=== PATIENT | male | born 1955 | race Two or more races ===

== ENCOUNTER 2018-04-17 14:12 | Emergency (ER) | payer BC, MEDICAID ==
[~2018-04-17] VITALS: Ht 180.3 cm; Wt 145.1 kg
[2018-04-17 14:57] LABS: Basophils # (auto) 0.1 uL; Basophils % (auto) 0.8 % (0.0-2.0); Eosinophils # (auto) 0.2 uL; Eosinophils % (auto) 2.4 % (0.0-7.0); Hematocrit 44.7 % (41.0-53.0); Lymphocytes # (auto) 3.1 uL; Lymphocytes % (auto) 35.5 % (10.0-50.0); Mean Corpuscular Hemoglobin 29.3 pg (28.0-32.0); Mean Corpuscular Hgb Conc. 33.6 g/dL (32.0-36.0); Mean Corpuscular Volume 87.1 fL (80.0-100.0); Monocytes # (auto) 0.9 uL; Monocytes % (auto) 10.1 % (0.0-12.0); Neutrophils # (auto) 4.4 uL; Neutrophils % (auto) 51.2 % (37.0-80.0); Nucleated Red Blood Cells % 0.1 %; Platelet Count (auto) 300 10^3/uL (140-450); Red Blood Cells 5.13 10^6/uL (4.5-5.90); Red Cell Distribution Width 13.6 % (11.8-14.3); White Blood Cell 8.7 10^3/uL (4.4-10.8)
[2018-04-17 15:22] LABS: INR 0.89 (0.9-1.15); Partial Thromboplastin Time 23.7 sec (23.78-33.04); Prothrombin Time 9.6 sec (9.27-12.13)
[2018-04-17 15:43] LABS: Alanine Aminotransferase 24 U/L (16-61); Albumin 3.4 g/dL (3.4-5.0); Alkaline Phosphatase 100 U/L (45-117); Anion Gap 8 (5-15); Aspartate Aminotransferase 12 U/L (15-37); BUN/Creatinine Ratio 20.9; Bilirubin, Total 0.7 mg/dL (0.2-1.0); Blood Urea Nitrogen 18 mg/dL (7-18); Calcium 8.1 mg/dL (8.5-10.1); Carbon Dioxide 25 mmol/L (21-32); Chloride 107 mmol/L (98-107); GFR African American 116 mL/min; GFR Non-African American 95 mL/min; Glucose 147 mg/dL (74-106); Potassium 4.1 mmol/L (3.5-5.1); Sodium 140 mmol/L (136-145); Total Protein 7.4 g/dL (6.4-8.2)
[2018-04-17] MEDS ORDERED: IOHEXOL 350 MG/ML 100ML IJ ONE (16:15)
[2018-04-17 19:44] VITALS: BP 132/69
== END 2018-04-17 19:36 | disposition home or self-care (01) ==
LOC: ER 14:12
DX: R79.1 Abnormal coagulation profile (principal); E11.9 Type 2 diabetes mellitus without complications; E78.5 Hyperlipidemia, unspecified; R53.1 Weakness
CPT/HCPCS: 36415; 71046; 71275; 80053; 83880; 84484; 85025; 85379; 85610; 85730; 93005; 93970; 99285; Q9967

== ENCOUNTER 2019-04-21 14:46 | Inpatient (IN) | payer BC ==
[~2019-04-21] VITALS: Ht 180.3 cm; Wt 141.4 kg
[2019-04-21] MEDS ORDERED: SODIUM CHLORIDE 0.9% 2,000 ML IV ONE (16:00)
[2019-04-21] MEDS ORDERED: PIPERACILLIN-TAZOB 3.375GM 100 ML IV ONE (17:00)
[2019-04-21 17:32] LABS: Basophils # (auto) 0.2 uL; Basophils % (auto) 1.7 % (0.0-2.0); Eosinophils # (auto) 0.3 uL; Eosinophils % (auto) 3.2 % (0.0-7.0); Hemoglobin 13.9 g/dL (13.5-17.5); Lymphocytes # (auto) 3.1 uL; Lymphocytes % (auto) 34.1 % (10.0-50.0); Mean Corpuscular Hemoglobin 28.9 pg (28.0-32.0); Mean Corpuscular Volume 87.5 fL (80.0-100.0); Monocytes # (auto) 0.9 uL; Monocytes % (auto) 10.2 % (0.0-12.0); Neutrophils # (auto) 4.7 uL; Neutrophils % (auto) 50.8 % (37.0-80.0); Nucleated Red Blood Cells % 0.1 %; Platelet Count (auto) 304 10^3/uL (140-450); Red Cell Distribution Width 13.6 % (11.8-14.3); White Blood Cell 9.2 10^3/uL (4.4-10.8)
[2019-04-21 17:46] LABS: Alanine Aminotransferase 30 U/L (16-61); Albumin 3.2 g/dL (3.4-5.0); Anion Gap 7 (5-15); Aspartate Aminotransferase 19 U/L (15-37); Blood Urea Nitrogen 16 mg/dL (7-18); Calcium 8.3 mg/dL (8.5-10.1); Carbon Dioxide 27 mmol/L (21-32); Chloride 106 mmol/L (98-107); GFR African American 125 mL/min; GFR Non-African American 103 mL/min; Glucose 143 mg/dL (74-106); Potassium 4.1 mmol/L (3.5-5.1); Sodium 140 mmol/L (136-145)
[2019-04-21 17:51] LABS: Alkaline Phosphatase 97 U/L (45-117); Bilirubin, Total 0.3 mg/dL (0.2-1.0); INR < 0.93 (0.9-1.15); Partial Thromboplastin Time 22.9 sec (23.64-32.05); Total Protein 7.5 g/dL (6.4-8.2)
[2019-04-21] MEDS ORDERED: ONDANSETRON HCL 4 MG/2 ML VIAL IV PRN (20:15)
[2019-04-21] MEDS ORDERED: HYDROcodone-ACET 5/325MG TAB PO PRN (20:15)
[2019-04-21] MEDS ORDERED: TEMAZEPAM 15 MG CAP PO PRN (20:15)
[2019-04-21] MEDS ORDERED: DEXTROSE (50%) 50ML SYRG IV PRN (20:15)
[2019-04-21] MEDS ORDERED: ACETAMINOPHEN 325 MG TAB PO PRN (20:15)
[2019-04-21] MEDS ORDERED: LEVOFLOXACIN 500MG 100 ML IV ONE (20:15)
[2019-04-21 21:13] VITALS: BP 118/53
[2019-04-21] MEDS: FAMOTIDINE 20 MG TAB PO SCH (22:22)
[2019-04-21] MEDS: ATORVASTATIN 20 MG TAB PO SCH (22:23)
[2019-04-21 23:45] VITALS: BP 134/70
[2019-04-21 23:52] VITALS: BP 119/53
[2019-04-22] MEDS: ACCU-CHEK COMFORT CURVE STRIP VI SCH ×4 (00:13→17:21)
[2019-04-22] MEDS: InsuLIN REG 1unit/0.01ml Soln (100units/ml) SC SCH ×4 (00:15→17:20)
[2019-04-22 05:00] VITALS: BP 102/59
--- NOTE | 2019-04-22 06:50 | NUR ---
Respiratory note: PT WAS OFFF CPAP. NO RESPIRATORY DISTRESS NOTED. PT WAS SLEEPING COMFORTABLY. SPO2 96% ON 2L NC HR 62.
--- NOTE | 2019-04-22 07:20 | NUR ---
Opening Shift Note Assumed care of patient, awake and alert. No S/S of distress/SOB or ear pain. Instructed on POC-continue IV antibiotic, monitor drainage on ear. Patient informed to call for assist PRN, will continue to monitor for changes Q1hr and PRN.
[2019-04-22 08:10] LABS: Basophils # (auto) 0.1 uL; Basophils % (auto) 0.7 % (0.0-2.0); Eosinophils # (auto) 0.3 uL; Eosinophils % (auto) 3.8 % (0.0-7.0); Hematocrit 41.6 % (41.0-53.0); Hemoglobin 13.9 g/dL (13.5-17.5); Lymphocytes # (auto) 2.6 uL; Lymphocytes % (auto) 33.6 % (10.0-50.0); Mean Corpuscular Hemoglobin 29.1 pg (28.0-32.0); Mean Corpuscular Hgb Conc. 33.3 g/dL (32.0-36.0); Mean Corpuscular Volume 87.4 fL (80.0-100.0); Monocytes # (auto) 0.9 uL; Monocytes % (auto) 11.2 % (0.0-12.0); Neutrophils % (auto) 50.7 % (37.0-80.0); Nucleated Red Blood Cells % 0.1 %; Platelet Count (auto) 275 10^3/uL (140-450); Red Blood Cells 4.76 10^6/uL (4.5-5.90); Red Cell Distribution Width 13.9 % (11.8-14.3); White Blood Cell 7.8 10^3/uL (4.4-10.8)
[2019-04-22 09:00] VITALS: BP 140/77
[2019-04-22] MEDS: LEVOFLOXACIN 500MG 100 ML IV SCH (10:10)
[2019-04-22] MEDS: HCTZ 25 MG TAB PO SCH (10:11)
[2019-04-22] MEDS: FAMOTIDINE 20 MG TAB PO SCH ×2 (10:12→22:34)
[2019-04-22 13:00] VITALS: BP 131/82
[2019-04-22] MEDS ORDERED: VANCOMYCIN PER PHARMACY 0 MG IV SCH (16:15)
[2019-04-22] MEDS: VANCOMYCIN 1,500 MG in D5W 5% 250 ML IV SCH (16:36)
[2019-04-22 17:00] VITALS: BP 125/72
--- NOTE | 2019-04-22 19:30 | NUR ---
Opening Shift Note Assumed care of patient, awake and alert x4. Patient denies pain at this time. No S/S of distress/SOB noted. Instructed on plan of care and to call for assistance as needed. Bed is locked in lowest position, side rails x 2 are up, and call light is within reach.
--- NOTE | 2019-04-22 19:58 | NUR ---
RECEIVED CALL FROM LAB RE: BLOOD CULTURE Received call from Ole ozuna, and this RN was notified that patients blood cultures from -- have resulted and are positive for gram positive cocci in clusters. Will notify
--- NOTE | 2019-04-22 20:00 | NUR ---
SPOKE WITH DR. KENNY RE: BOOD CULTURES Notified Dr. Kenny that patients blood cultures from 04-21-19 resulted and came back positive for gram positive cocci in clusters. Patient is currently on scheduled Vancomycin and Levaquin antibiotics. No new orders received at this time.
[2019-04-22 22:00] VITALS: BP 108/68
[2019-04-22] MEDS: ATORVASTATIN 20 MG TAB PO SCH (22:34)
[2019-04-23] MEDS: ACCU-CHEK COMFORT CURVE STRIP VI SCH ×3 (00:29→12:00)
[2019-04-23] MEDS: VANCOMYCIN 1,500 MG in D5W 5% 250 ML IV SCH (04:33)
--- NOTE | 2019-04-23 04:35 | NUR ---
IV INSERTION/REMOVAL IV to left AC DC'd with clean sterile technique, catheter fully intact. Pressure dressing applied to site. Patient tolerated well. IV access obtained, via clean sterile technique by inserting 22 gauge catheter at right hand after 1 attempt. IV secured properly. IV flushing well with no resistance, educated patient to notify this RN if IV site begins to burn or feel painful, patient verbalized understanding.
[2019-04-23 05:00] VITALS: BP 117/71
[2019-04-23] MEDS: InsuLIN REG 1unit/0.01ml Soln (100units/ml) SC SCH ×3 (07:59→12:00)
[2019-04-23 08:00] VITALS: BP 121/73
--- NOTE | 2019-04-23 08:00 | NUR ---
RECEIVED PATIENT ALERT AND ORIENTED X4, NOT IN DISTRESS, NO EDEMA OR DRAINAGE FROM LT EAR NOTED, NO HEARING DEFICIENCY NOTED, EXPIRATORY WHEEZING SOUNDS IN BILATERAL LUNG LOBES RR= 18 SAT=95%, HEART R=88, DENIED SOB OR CHEST PAIN, ABDOMEN ROUND AND SOFT WITH ACTIVE BS, LAST BM=04/22/19 REPORTED, TOLERATED 100% OF PROVIDED BREAK FAST TRAY, SKIN INTACT WARM TO TOUCH, RADIAL AND PEDAL PULSES PALPABLE, CAP REFILL<3 SECONDS, HEAD OF BED ELEVATED, BED ON LOW POSITION, RAILS UP X2, CALL LIGHT ON REACH, WILL CONTINUE MONITORING.
--- NOTE | 2019-04-23 08:35 | NUR ---
PT. ASSESSED , NO RESP. DISTRESS NOTED. PT. IS AWAKE,ALERT, AND ABLE TO FOLLOW COMMANDS. BS. ARE CLEAR AND DIMINISHED. PT. STATES HE WORE HIS CPAP LAST NIGHT, HE IS HOPING TO GO HOME TODAY. RA SPO2 96%,HR=72,RR=18. PT. STATES IF HE HAS TO STAY ANOTHER NIGHT HE WILL BE WEARING THE CPAP.
[2019-04-23] MEDS ORDERED: METF-370 PO (09:13)
[2019-04-23] MEDS ORDERED: HYDR12.56 PO (09:13)
[2019-04-23] MEDS ORDERED: TAMS0.4C36 PO (09:13)
[2019-04-23] MEDS ORDERED: LOVA20TA4 PO (09:13)
[2019-04-23] MEDS ORDERED: LEVO-28 PO (09:13)
[2019-04-23] MEDS: LEVOFLOXACIN 500MG 100 ML IV SCH (10:00)
[2019-04-23] MEDS: HCTZ 25 MG TAB PO SCH (10:01)
[2019-04-23] MEDS: FAMOTIDINE 20 MG TAB PO SCH (10:01)
[2019-04-23 14:00] VITALS: BP 129/78
--- NOTE | 2019-04-23 14:47 | NUR ---
D/C INSTRUCTIONS AND EDUCATION WAS PROVIDED, FOLLOW UP APPOINTMENT WILL BE DONE BY CALLING FROM HOME, VERBALIZED UNDERSTANDING, PRESCRIPTIONS AND MEDICATION INFORMATION PROVIDED, LT. EAR DRY AND INTACT, DENIED PAIN OR DISCOMFORT ON THE SITE, D/C IV SITE FROM RT. HAND, TOLERATED WELL, VS T=98.5 RR=18 SAT=96% P=68 ZH=038/73, NOT IN DISTRESS, DENIED PAIN, WC WAS PROVIDED, D.C HOME WALKING, TOOK ALL BELONGINGS AND LEFT NOTHING BEHIND.
== END 2019-04-23 13:40 | disposition home or self-care (01) | DRG 153 ==
LOC: ER 14:49 → OVERFLOW 14:50 → EAST 21:14
PROVIDERS: ADMIT Nurse Practitioner; ATTEND Internal Medicine
DX: H66.92 Otitis media, unspecified, left ear (principal); Z68.41 Body mass index [BMI] 40.0-44.9, adult; D32.9 Benign neoplasm of meninges, unspecified; I10 Essential (primary) hypertension; E66.01 Morbid (severe) obesity due to excess calories; G47.33 Obstructive sleep apnea (adult) (pediatric); E11.9 Type 2 diabetes mellitus without complications; E78.5 Hyperlipidemia, unspecified; E78.00 Pure hypercholesterolemia, unspecified; Z71.3 Dietary counseling and surveillance
CPT/HCPCS: 36415; 70488; 71046; 80053; 80202; 82962; 83036; 84484; 85025; 85610; 85730; 87040; 87077; 87186; 87205; 94660; 96365; 96366; 96367; G0378; J1815; J1956; J2543; J7060

== ENCOUNTER 2024-10-28 15:38 | Inpatient (IN) | payer BC, OTHER ==
[~2024-10-28] VITALS: Ht 180.3 cm; Wt 133.7 kg
[~2024-10-28 15:38] MED LIST: HYDR12.59 PO; LEVO500T91 PO; LOVA20TA4 PO; METF-370 PO; TAMS0.4C39 PO
--- NOTE | 2024-10-28 16:01 | ED.PDOC ---
HPI Comments 69 year old male presents to the ED with chief complaint of chest pain and SOB. Patient reports that he was diagnosed with A-Fib a month ago and had been prescribed Eliquis by his curtain stitcher. Patient relays that he started to experience SOB with associated substernal chest pressure today. Patient states he drank half a cup of coffee prior to symptom onset. EMS notes patient had went to his PCP and once an EKG was performed, 911 was called due to a reading of A- Fib w/ RVR. EMS reports patient's heart rate ranged from the 130s to the 180s. Patient denies any dizziness, headache, N/V, fever, chills, cough, or weakness. Time Seen by MD: 15:54 Primary Care Provider: New PCP Reviewed Notes: Nurses Notes, Rag Inspector Notes, Medications, Allergies Allergies: Coded Allergies: NO KNOWN ALLERGIES (Unverified , 04/17/18) Home Meds Reported Medications Lovastatin (Lovastatin) 20 Mg Tab, 1 TAB PO DAILY, #30 TAB 5 Refills 04/23/19 Levofloxacin Hemihydrate (LEVOFLOXACIN) 500 Mg Tab, 500 MG PO DAILY, MG 04/23/19 Hydrochlorothiazide (Hydrochlorothiazide) 12.5 Mg Cap, 12.5 MG PO DAILY for 30 Days, MG 04/23/19 Tamsulosin Hcl (Tamsulosin Hcl) 0.4 Mg Cap, 0.4 MG PO QPM for 30 Days, MG 04/23/19 Metformin Hydrochloride (Metformin Hcl) 500 Mg Tab, 500 MG PO DAILY for 30 Days, MG 04/23/19 Information Source: Patient, Emergency Med Personnel Mode of Arrival: EMS Severity: Moderate Timing: Hours Duration: Since onset Prehospital treatment: 12 Lead EKG Location: Substernal Radiation: No Radiation Quality: Pressure Onset: At Rest Cardiac Risk Factors: Hyperlipidemia, Diabetes PE Risk Factors: None History of: Similar pain in past Modifying Factors: Nothing Past Medical History PAST MEDICAL HISTORY: AFIB, DM, High Lipids Surgical History: Hernia Repair Family History Family History: Unobtainable Social History Smoker: Non-Smoker Alcohol: Occasionally Drugs: Denies Drug Use Lives In: Home Constitutional: denies: chills, diaphoresis, fatigue, fever, malaise, sweats, weakness, others EENTM: denies: blurred vision, double vision, ear bleeding, ear discharge, ear drainage, ear pain, ear ringing, eye pain, eye redness, hearing loss, mouth pain, mouth swelling, nasal discharge, nose bleeding, nose congestion, nose pain, photophobia, tearing, throat pain, throat swelling, voice changes, others Respiratory: reports: shortness of breath; denies: cough, hemoptysis, orthopnea, SOB at rest, SOB with excertion, stridor, wheezing, others Cardiovascular: reports: chest pain; denies: dizzy spells, diaphoresis, Dyspnea on exertion, edema, irregular heart beat, left arm pain, lightheadedness, pa lpitations, PND, syncope, others Gastrointestinal: denies: abdomen distended, abdominal pain, blood streaked bowels, constipated, diarrhea, dysphagia, difficulty swallowing, hematemesis, melena, nausea, poor appetite, poor fluid intake, rectal bleeding, rectal pain, vomiting, others Genitourinary: denies: burning, dysuria, flank pain, frequency, hematuria, incontinence, penile discharge, penile sore, pain, testicle pain, testicle swelling, urgency, others Neurological: denies: dizziness, fainting, headache, left sided numbness, left sided weakness, numbness, paresthesia, pre-existing deficit, right sided numbness, right sided weakness, seizure, speech problems, tingling, tremors, weakness, others Musculoskeletal: denies: back pain, gout, joint pain, joint swelling, muscle pain, muscle stiffness, neck pain, others Integumetry: denies: bruises, change in color, change in hair/nails, dryness, laceration, lesions, lumps, rash, wounds, others Allergic/Immunocompromised: denies: Difficulty Healing, Frequent Infections, Hives, Itching, others Hematologic/Lymphatic: denies: anemia, blood clots, easy bleeding, easy br uising, swollen glands, others Endocrine: denies: excessive hunger, excessive sweating, excessive thirst, excessive urination, flushing, intolerance to cold, intolerance to heat, unexplained weight gain, unexplained weight loss, others Psychiatric: denies: anxiety, bipolar disorder, depression, hopeless, panic disorder, schizophrenia, sleepless, suicidal, others All Other Systems: Reviewed and Negative Physical Exam General Appearance: Moderate Distress, Normal HEENT: Normal ENT Inspection, PERRL/EOMI Neck: Full Range of Motion, Non-Tender, Normal, Normal Inspection Respiratory: Chest Non-Tender, No Accessory Muscle Use, No Respiratory Distress, Other (Coarse breath sounds) Cardiovascular: Irregular, No Edema, No JVD, No Murmur, No Gallop, Normal Peripheral Pulses Breast Exam: Deferred Gastrointestinal: No Organomegaly, Non Tender, No Pulsatile Mass, Normal Bowel Sounds, Soft Genitalia: Deferred Pelvic: Deferred Rectal: Deferred Extremities: No calf tenderness, No pedal edema Musculoskeletal : Apperance: Normal Neurologic: Alert, door to door lead generation II-XII nml as Tested, No Motor Deficits, Normal Affect, Normal Mood, No Sensory Deficits Cerebellar Function: NOT DONE Reflexes: NOT DONE Skin: Dry, Normal Color, Warm Peripheral Pulses: 3+ Radial (R), 3+ Radial (L) Lymphatic: No Adenopathy Was a procedure done? Was a procedure done?: No CP Differential Dx Differential Diagnosis: A-fib, A-Flutter, Angina, Anxiety / Panic Attack, Atrial Dysrhythmia, Electrolyte Disorder X-Ray, Labs, Meds, VS Vital Signs Date Time Temp Pulse Resp B/P (MAP) Pulse Ox O2 Delivery O2 Flow Rate FiO2 10/28/24 16:20 111 14 128/75 (92) 95 10/28/24 15:41 139 Patient alert. Complaining of shortness a breath. Atrial fibrillation. Vitals stable. Answering all questions. He is obese. Possibly is increased abdominal girth causing shortness a breath. Chest x-ray does show congestion. Was given Lasix. EKG reviewed does show atrial fibrillation. Reviewed his history. Explained to the patient. Continue cardiac monitoring. Time of 1ST Reevaluation: 16:54 Reevaluation 1ST: Unchanged Patient Education/Counseling: Diagnosis, Treatment Family Education/Counseling: No Family Present Additional Information I reviewed the following notes from patient's past medical encounters: None The following tests were ordered, and results were reviewed by me: EKG Additional Information was gathered from interviewing the following independent historians: EMS I reviewed and agreed with the following test results read by other providers: None I discussed treatment and results with medical personnel. Departure 1 Departure Time of Disposition: 16:39 Impression: Primary Impression: CHF (congestive heart failure) Qualified Codes: I50.43 - Acute on chronic combined systolic (congestive) and diastolic (congestive) heart failure Additional Impressions: Uncontrolled diabetes mellitus Qualified Codes: E13.65 - Other specified diabetes mellitus with hyperglycemia Atrial fibrillation Qualified Codes: I48.0 - Paroxysmal atrial fibrillation Disposition: ADMITTED INPATIENT Admit to: Med Surg Condition: Guarded Critical Care Note Critical Care Time?: Yes (45 min-critical care time only) Stability Stability form required: No Heart Score Heart Score: Heart Score Response (Comments) Value History Highly Suspicious 2 EKG Repolarization Disturb 1 Age >65 2 Risk Factors >3 or Hx ASHD 2 Troponin Normal limit 0 Total 7 I personally scribed for TANG WERNER MD ([email or web address]) on 10/28/24 at 16:01. Electronically submitted by Jerald Sherman ([email or web address]). TANG WERNER MD Oct 28, 2024 16:01
--- NOTE | 2024-10-28 16:16 | DVH ---
XY CHEST PORTABLE, HISTORY: sob COMPARISON: None None TECHNICAL DATA: 1 view of the chest was obtained. FINDINGS: Lines and tubes: None Cardiomediastinal silhouette: large Pulmonary vasculature: prominent Lung expansion: normal Lung airspace: normal Lung interstitium: normal Pleura: normal Pneumothorax: no Bones: Unremarkable Other: no IMPRESSION: cardiomegaly with pulmonary congestion
[2024-10-28 16:20] VITALS: PULSE 111; RESP 14; O2SAT 95
[2024-10-28] MEDS: FUROSEMIDE 40 MG/4 ML VIAL IV ONE (16:49)
[2024-10-28 16:51] LABS: Basophils # (auto) 0 10 ^3/uL (0-0.2); Basophils % (auto) 0.3 % (0.0-2.0); Eosinophils # (auto) 0.1 10 ^3/uL (0-0.8); Eosinophils % (auto) 0.6 % (0.0-7.0); Hematocrit 43.8 % (41.0-53.0); Hemoglobin 14.7 g/dL (13.5-17.5); Lymphocytes # (auto) 2.2 10 ^3/uL (0.4-5.4); Lymphocytes % (auto) 22.3 % (10.0-50.0); Mean Corpuscular Hemoglobin 28.8 pg (28.0-32.0); Mean Corpuscular Hgb Conc. 33.6 g/dL (32.0-36.0); Mean Corpuscular Volume 85.7 fL (80.0-100.0); Monocytes # (auto) 1.7 10 ^3/uL (0-1.3); Monocytes % (auto) 17.1 % (0.0-12.0); Neutrophils % (auto) 59.7 % (37.0-80.0); Nucleated Red Blood Cells % 0.1 %; Platelet Count (auto) 283 10^3/uL (140-450); Red Blood Cells 5.11 10^6/uL (4.5-5.90); Red Cell Distribution Width 14.3 % (11.8-14.3); White Blood Cell 10.1 10^3/uL (4.4-10.8)
[2024-10-28 16:59] LABS: Chloride 103 mmol/L (98-107); Sodium 138 mmol/L (136-145)
[2024-10-28 17:00] LABS: Anion Gap 6 (5-15); Calcium 9.4 mg/dL (8.7-10.4); Carbon Dioxide 29 mmol/L (20-31)
[2024-10-28 17:05] LABS: BUN/Creatinine Ratio 15.4 (10.0-20.0); Blood Urea Nitrogen 12 mg/dL (9-23)
[2024-10-28 17:06] LABS: Urine Bacteria None Seen /hpf (None Seen)
[2024-10-28 17:07] LABS: Glucose 118 mg/dL (74-106)
[2024-10-28 17:21] LABS: Urine Blood Negative /uL (Negative); Urine Clarity Clear (Clear); Urine Color Light-Yellow (Yellow); Urine Protein, UAD Negative (Negative); Urine Squamous Epithelial Cell None Seen /hpf (<5); Urine Urobilinogen Normal (Negative); Urine WBC <1 /hpf (0 - 3)
[2024-10-28] MEDS: dilTIAZem 25 MG/5 ML VIAL IV ONE (17:42)
[2024-10-28] MEDS: dilTIAZem 125mg/125ml BAG KIT 125 ML IV ONE (18:36)
[2024-10-28] MEDS ORDERED: ONDANSETRON HCL 4 MG/2 ML VIAL IV PRN (19:15)
[2024-10-28] MEDS ORDERED: TEMAZEPAM 15 MG CAP PO PRN (19:15)
[2024-10-28] MEDS ORDERED: ACETAMINOPHEN 325 MG TAB PO PRN (19:15)
[2024-10-28 19:30] VITALS: PULSE 109; RESP 14; O2SAT 95
[2024-10-28] MEDS: ATORVASTATIN 20 MG TAB PO SCH (21:30)
[2024-10-28] MEDS: APIXABAN 5 MG TAB PO SCH (21:30)
[2024-10-28] MEDS: MORPHINE SULFATE INJ 2 MG/ml SYRG IV PRN (22:15)
--- NOTE | 2024-10-28 23:27 | DVHHP2 ---
History of Present Illness Reason for Visit: Chest pain History of Present Illness 69-year-old male presents for evaluation of chest pain. Patient reports developing substernal pressure-like chest pain today. On arrival patient was noted to be in AFib with RVR with a heart rate ranging from 130s to 180s. Initially he did complain of dizziness. Currently he reports mild chest pressure and shortness for breath. Patient was started on Cardizem drip in the emergency department. Past Medical History Dyslipidemia, diabetes mellitus and atrial fibrillation Past Surgical History Hernia repair Family History Noncontributory Smoke: No ALCOHOL: occassional Drugs: None Lives: with Family Review of Systems Review of Systems Review of systems are currently negative otherwise addressed in HPI. Allergies: Coded Allergies: NO KNOWN ALLERGIES (Unverified , 04/17/18) Medications Current Medications Medications Dose Ordered Sig/Arianna Route Start Time Stop Time Status Last Admin Dose Admin Tamsulosin HCl 0.4 mg QPM PO 10/29/24 18:00 Apixaban 5 mg BID PO 10/28/24 22:00 10/28/24 21:30 5 MG Furosemide 20 mg DAILY PO 10/29/24 10:00 Atorvastatin Calcium 20 mg HS PO 10/28/24 22:00 10/28/24 21:30 20 MG Temazepam 15 mg QHSP PRN PO 10/28/24 19:15 Ondansetron HCl 4 mg Q4HP PRN IV 10/28/24 19:15 Acetaminophen 650 mg Q6HP PRN PO 10/28/24 19:15 Nitroglycerin 0.4 mg Q5MINP PRN SL 10/28/24 19:15 Morphine Sulfate 2 mg Q30M PRN IV 10/28/24 19:15 10/28/24 22:15 2 MG Exam Vital Signs Vital Signs Date Time Temp Pulse Resp B/P (MAP) Pulse Ox O2 Delivery O2 Flow Rate FiO2 10/28/24 23:00 126/71 10/28/24 22:34 103 18 10/28/24 22:30 93 10/28/24 19:30 Room Air* 0 21 10/28/24 15:38 100.9 Exam Gen: 69-year-old male in mild distress, morbidly obese Skin: Warm, dry, normal color and texture, no rash. HEENT: Normocephalic atraumatic, mucous membranes moist and pink. Neck: Cervical and supraclavicular nodes normal without enlargement, trachea is midline, thyroid gland is normal without masses. Pulmonary: Clear to auscultation and percussion bilaterally. Cardiac: Irregular rhythm Abdomen: Soft, nontender, nondistended, bowel sounds present all 4 quadrants, no guarding, no rigidity, no organomegaly. Extremities: No cyanosis, clubbing, no edema Neuro: Cranial nerves II through XII grossly intact, normal affect and speech, no focal motor deficits. Labs/Xrays ORDERING PHYSICIAN: TANG WERNER MD PROCEDURE(s): CXRP - CHEST PORTABLE REASON: sob ORDER NUMBER(s): [id number], ACCESSION NUMBER(s): [id number] XY CHEST PORTABLE, HISTORY: sob COMPARISON: None None TECHNICAL DATA: 1 view of the chest was obtained. FINDINGS: Lines and tubes: None Cardiomediastinal silhouette: large Pulmonary vasculature: prominent Lung expansion: normal Lung airspace: normal Lung interstitium: normal Pleura: normal Pneumothorax: no Bones: Unremarkable Other: no IMPRESSION: cardiomegaly with pulmonary congestion ATED BY: OZZIE ALSTON MD Labs Test 10/28/24 16:30 Range/Units White Blood Count 10.1 4.4-10.8 10^3/uL Red Blood Count 5.11 4.5-5.90 10^6/uL Hemoglobin 14.7 13.5-17.5 g/dL Hematocrit 43.8 41.0-53.0 % Mean Corpuscular Volume 85.7 80.0-100.0 fL Mean Corpuscular Hemoglobin 28.8 28.0-32.0 pg Mean Corpuscular Hemoglobin Concent 33.6 32.0-36.0 g/dL Red Cell Distribution Width 14.3 11.8-14.3 % Platelet Count 283 140-450 10^3/uL Mean Platelet Volume 7.5 6.9-10.8 fL Neutrophils (%) (Auto) 59.7 37.0-80.0 % Lymphocytes (%) (Auto) 22.3 10.0-50.0 % Monocytes (%) (Auto) 17.1 H 0.0-12.0 % Eosinophils (%) (Auto) 0.6 0.0-7.0 % Basophils (%) (Auto) 0.3 0.0-2.0 % Neutrophils # (Auto) 6.0 1.6-8.6 10 ^3/uL Lymphocytes # (Auto) 2.2 0.4-5.4 10 ^3/uL Monocytes # (Auto) 1.7 H 0-1.3 10 ^3/uL Eosinophils # (Auto) 0.1 0-0.8 10 ^3/uL Basophils # (Auto) 0 0-0.2 10 ^3/uL Nucleated Red Blood Cells 0.1 % Urine Color Light-yellow Yellow Urine Clarity Clear Clear Urine pH 6.0 5.0-9.0 Urine Specific [place] 1.010 1.001-1.035 Urine Protein Negative Negative Urine Ketones Negative Negative Urine Blood Negative Negative /uL Urine Nitrite Negative Negative Urine Bilirubin Negative Negative Urine Urobilinogen Normal Negative mg/dL Urine Leukocyte Esterase Negative Negative /uL Urine RBC 3 0 - 3 /hpf Urine WBC <1 0 - 3 /hpf Urine Squamous Epithelial Cells None seen <5 /hpf Urine Bacteria None seen None Seen /hpf Urine Glucose Normal Normal mg/dL Sodium Level 138 136-145 mmol/L Potassium Level 4.0 3.5-5.1 mmol/L Chloride Level 103 98-107 mmol/L Carbon Dioxide Level 29 20-31 mmol/L Anion Gap 6 5-15 Blood Urea Nitrogen 12 9-23 mg/dL Creatinine 0.78 0.700-1.30 mg/dL Glomerular Filtration Rate Calc 97 >90 mL/min BUN/Creatinine Ratio 15.4 10.0-20.0 Serum Glucose 118 H 74-106 mg/dL Calcium Level 9.4 8.7-10.4 mg/dL Troponin I High Sensitivity 4 </=54 ng/L B-Type Natriuretic Peptide 56.62 0-100 pg/mL Thyroid Stimulating Hormone (TSH) 0.58 0.55-4.78 uIU/mL Assessment/Plan Assessment/Plan Assessment AFib with RVR Diabetes mellitus Hypertension Morbid obesity Plan Admit the patient to [facility] to the hospitalist Continue Cardizem drip Echocardiogram pending Cardiology consultation Resume home medications Continue treatment per orders. Plan discussed with: Patient My Orders Orders - ANTONIA PROCNArmani Procedure Category Date Status Time * Cardiology Consult CONS 10/28/24 Transmitted 19:10 Tamsulosin PHA 10/29/24 In Process Hydrochloride (Flomax) 18:00 Apixaban (Eliquis) PHA 10/28/24 In Process 22:00 Furosemide Tablet PHA 10/29/24 In Process (Lasix Tablet) 10:00 Atorvastatin (Lipitor) PHA 10/28/24 In Process 22:00 Basic Metabolic Panel LAB 10/29/24 Logged 04:00 Admit ADMIT 10/28/24 Transmitted 19:10 Temazepam (Restoril) PHA 10/28/24 In Process 19:15 Ondansetron Hcl PHA 10/28/24 In Process (Zofran) 19:15 Cardiac DIET 10/29/24 Transmitted Diet-2gna,Lofat,Lochol Breakfast Echo 2d Mode Cardiac US 10/28/24 Logged DOP 19:10 Condition: Critical MARITZA 10/28/24 In Process 19:10 Acetaminophen Tablet PHA 10/28/24 In Process (Tylenol Tablet) 19:15 Bedrest With Bathroom MARITZA 10/28/24 In Process Privileg 19:10 Nitroglycerin PHA 10/28/24 In Process Sublingual (Ntrostat 19:15 Morphine Sulfate PHA 10/28/24 In Process Injection 19:15 Stat Ekg For Chest MARITZA 10/28/24 In Process Pain 19:10 Notify Md Of Changes MARITZA 10/28/24 In Process From Base 19:10 Product Analyst For MARITZA 10/28/24 In Process 24 Hours 19:10 Emergency Dysrhythmia [facility] 10/28/24 In Process Protocol 19:10 Rhythm Strips Once MARITZA 10/28/24 In Process Every Shift 19:10 Oxygen By Nasal RT 10/28/24 Transmitted Cannula 19:10 Date of Service: Oct 28, 2024 Billing Provider: ANTONIA PRO Common Visit Codes: [id number] CARE 30-74 MIN ANTONIA PRO Oct 28, 2024 23:27
[2024-10-29] MEDS: METOPROLOL TARTRATE 25 MG TAB PO ONE (03:49)
[2024-10-29 04:07] LABS: Chloride 102 mmol/L (98-107); Sodium 137 mmol/L (136-145)
[2024-10-29 04:08] LABS: Anion Gap 8 (5-15); Carbon Dioxide 27 mmol/L (20-31)
[2024-10-29 04:09] LABS: Calcium 9.7 mg/dL (8.7-10.4)
[2024-10-29 04:14] LABS: BUN/Creatinine Ratio 13.9 (10.0-20.0); Blood Urea Nitrogen 11 mg/dL (9-23)
[2024-10-29 04:27] LABS: Glucose 131 mg/dL (74-106); Potassium 3.4 mmol/L (3.5-5.1)
[2024-10-29] MEDS: NITROGLYCERIN 0.4 MG SL TAB SL PRN (07:01)
--- NOTE | 2024-10-29 08:36 | ECG ---
[facility] Test Date: 2024-10-28 Test Time: 15:41:00 Pat Name: LINDSAY MAK Department: ED Room: 0240T Gender: M Mohel: CHATO : 1955 Requested By: TANG WERNER Order Number: [id number] Reading MD: Tarik Hooper Measurements Intervals [place] Rate: 139 P: 0 IN: 0 QRS: -9 QRSD: 82 T: 106 QT: 313 QTc: 476 Interpretive Statements Atrial fibrillation Low voltage, precordial leads Borderline T wave abnormalities Borderline prolonged QT interval Electronically Signed On 11-01-2024 15:39:55 PST by Tarik Hooper Please click the below link to view image of tracing.
--- NOTE | 2024-10-29 11:18 | DVHINCON2 ---
Date Seen: Oct 29, 2024 Referring Physician STEVIE Huang Reason for Consultation A-fib History of Present Illness This is a pleasant 69-year-old man who presented to emergency room via EMS with a chief complaint of chest tightness. Per patient, he was diagnosed with a back injury approximately a month ago and followed up with his PCP yesterday for MRI results when he complained chest wall area soreness which was worse with inhalation prompting a 12 lead electrocardiogram revealing an atrial fibrillation rhythm with rapid ventricular rate for which he was referred to the emergency room for further evaluation. Upon arrival to the emergency room he underwent a subsequent 12 lead electrocardiogram revealing an atrial fibrillation rhythm with rapid ventricular rate in the 130s bpm. At time of ass essment, the heart rate was fluctuating in between 100s-110s bpm. He was initially medicated with Cardizem IV 20 mg followed by a Cardizem drip and metoprolol tartrate p.o. Per patient, he was diagnosed with atrial fibrillation two months ago and placed on Eliquis therapy. At that time, he also underwent a transthoracic echocardiogram and stress test without abnormal results. Follows up with Dr. Freeman in the outpatient setting with upcoming appointment in two months. Other significant medical history includes hypertension, dyslipidemia, fqz-rxiqbje-pghulrhvo diabetes mellitus, chronic back pain, benign prostatic hyperplasia, obstructive sleep apnea on CPAP HUA, and morbid obesity. Past Medical History Past medical history reviewed. No other significant than mentioned above. Past Surgical History Past surgical history reviewed. No other significant than mentioned above. Family History: Cancer G8 MOTHER G8 FATHER Family History Family history reviewed. Social History Denies the use of illicit drugs or tobacco use. Admits to occasional alcohol use. Allergies: Coded Allergies: NO KNOWN ALLERGIES (Unverified , 04/17/18) Home Meds Reported Medications Lovastatin (Lovastatin) 20 Mg Tab, 1 TAB PO DAILY, #30 TAB 5 Refills 04/23/19 Levofloxacin Hemihydrate (LEVOFLOXACIN) 500 Mg Tab, 500 MG PO DAILY, MG 04/23/19 Hydrochlorothiazide (Hydrochlorothiazide) 12.5 Mg Cap, 12.5 MG PO DAILY for 30 Days, MG 04/23/19 Tamsulosin Hcl (Tamsulosin Hcl) 0.4 Mg Cap, 0.4 MG PO QPM for 30 Days, MG 04/23/19 Metformin Hydrochloride (Metformin Hcl) 500 Mg Tab, 500 MG PO DAILY for 30 Days, MG 04/23/19 Home Meds Home medications reviewed. Current Medications Current Medications Medications (Trade) Dose Ordered Sig/Arianna Route PRN Reason Start Time Stop Time Status Last Admin Tamsulosin HCl (Flomax) 0.4 mg QPM PO 10/29/24 18:00 Apixaban (Eliquis) 5 mg BID PO 10/28/24 22:00 10/28/24 21:30 Furosemide (Lasix Tablet) 20 mg DAILY PO 10/29/24 10:00 Atorvastatin Calcium (Lipitor) 20 mg HS PO 10/28/24 22:00 10/28/24 21:30 Temazepam (Restoril) 15 mg QHSP PRN PO FOR INSOMNIA 10/28/24 19:15 Ondansetron HCl (Zofran) 4 mg Q4HP PRN IV NAUSEA / VOMITING 10/28/24 19:15 Acetaminophen (Tylenol Tablet) 650 mg Q6HP PRN PO PAIN SCALE 1-3 OR TEMP>100.4 10/28/24 19:15 Nitroglycerin (Ntrostat Sublingual) 0.4 mg Q5MINP PRN SL FOR CHEST PAIN 10/28/24 19:15 10/29/24 07:01 Morphine Sulfate 2 mg Q30M PRN IV FOR CHEST PAIN 10/28/24 19:15 10/29/24 00:15 Review of Systems Constitutional: No symptom reported Ears, Nose, & Throat: No symptom reported Eyes: No symptom reported Neurological: No symptoms reported Pulmonary/Respiratory: No symptom reported Cardiovascular: No symptom reported Gastrointestinal: No symptom reported Genitourinary: No symptom reported Musculoskeletal: Chest wall pain Skin: No symptom reported Psychiatric: No symptom reported Endocrine: No symptom reported Hemotologic/Lymphatic: No symptom reported Vital Signs Vital Signs Date Time Temp Pulse Resp B/P (MAP) Pulse Ox O2 Delivery O2 Flow Rate FiO2 10/29/24 10:00 97 16 128/70 (89) 92 10/28/24 19:30 Room Air* 0 21 10/28/24 15:38 100.9 Physical Exam General Appearance: Cooperative. Well developed. Morbidly obese. In no acute distress Head Exam: Normal inspection Neck Exam: Normal inspection. Non-tender. Normal alignment Pulmonary/Respiratory: Chest non-tender. Diminished bilateral breath sounds Cardiovascular/Chest: Irregularly irregular rate and rhythm. AFib with RVR. No murmurs. No JVD. Peripheral Pulses: 2+ Radial (R). 2+ Radial (L). 2+ Pedal (R). 2+ Pedal (L) Abdominal Exam: Normal bowel sounds. Soft. Ankle Exam: Negative ankle edema Lower extremities: Negative lower extremity edema Neuro/Mental Status: A&O x4. Coherent Thoughts/Psych: Normal thought pattern. Appropriate mood and affect. Pleasant Appearance: In no acute distress Skin Exam: Normal inspection. Normal color. Warm. Dry Labs/Diagnostic Data Labs Test 10/29/24 03:48 10/28/24 23:39 10/28/24 16:30 Range/Units Sodium Level 137 136-145 mmol/L Potassium Level 3.4 L 3.5-5.1 mmol/L Chloride Level 102 98-107 mmol/L Carbon Dioxide Level 27 20-31 mmol/L Anion Gap 8 5-15 Blood Urea Nitrogen 11 9-23 mg/dL Creatinine 0.79 0.700-1.30 mg/dL Glomerular Filtration Rate Calc 96 >90 mL/min BUN/Creatinine Ratio 13.9 10.0-20.0 Serum Glucose 131 H 74-106 mg/dL Calcium Level 9.7 8.7-10.4 mg/dL Troponin I High Sensitivity 5 </=54 ng/L White Blood Count 10.1 4.4-10.8 10^3/uL Red Blood Count 5.11 4.5-5.90 10^6/uL Hemoglobin 14.7 13.5-17.5 g/dL Hematocrit 43.8 41.0-53.0 % Mean Corpuscular Volume 85.7 80.0-100.0 fL Mean Corpuscular Hemoglobin 28.8 28.0-32.0 pg Mean Corpuscular Hemoglobin Concent 33.6 32.0-36.0 g/dL Red Cell Distribution Width 14.3 11.8-14.3 % Platelet Count 283 140-450 10^3/uL Mean Platelet Volume 7.5 6.9-10.8 fL Neutrophils (%) (Auto) 59.7 37.0-80.0 % Lymphocytes (%) (Auto) 22.3 10.0-50.0 % Monocytes (%) (Auto) 17.1 H 0.0-12.0 % Eosinophils (%) (Auto) 0.6 0.0-7.0 % Basophils (%) (Auto) 0.3 0.0-2.0 % Neutrophils # (Auto) 6.0 1.6-8.6 10 ^3/uL Lymphocytes # (Auto) 2.2 0.4-5.4 10 ^3/uL Monocytes # (Auto) 1.7 H 0-1.3 10 ^3/uL Eosinophils # (Auto) 0.1 0-0.8 10 ^3/uL Basophils # (Auto) 0 0-0.2 10 ^3/uL Nucleated Red Blood Cells 0.1 % Urine Color Light-yellow Yellow Urine Clarity Clear Clear Urine pH 6.0 5.0-9.0 Urine Specific [place] 1.010 1.001-1.035 Urine Protein Negative Negative Urine Ketones Negative Negative Urine Blood Negative Negative /uL Urine Nitrite Negative Negative Urine Bilirubin Negative Negative Urine Urobilinogen Normal Negative mg/dL Urine Leukocyte Esterase Negative Negative /uL Urine RBC 3 0 - 3 /hpf Urine WBC <1 0 - 3 /hpf Urine Squamous Epithelial Cells None seen <5 /hpf Urine Bacteria None seen None Seen /hpf Urine Glucose Normal Normal mg/dL B-Type Natriuretic Peptide 56.62 0-100 pg/mL Thyroid Stimulating Hormone (TSH) 0.58 0.55-4.78 uIU/mL Assessment Noncardiac chest pain Atrial fibrillation with rapid ventricular rate, likely persistent, Stage IIIb (on Eliquis) Hypertension Dyslipidemia Wcm-exinvqh-mgjzciueg diabetes mellitus CECY on CPAP Morbid obesity Plan/Recommendation (Dr. Peters) The patient underwent a transthoracic echocardiogram revealing an EF of 55 60% with no gross wall motion abnormalities but endocardial definition is suboptimal. He also underwent a recent nonischemic stress test two months ago with primary bulb inspector. Continue rate control with metoprolol 50 mg XL daily and avoid antiarrhythmic therapy as this is likely persistent A-Fib. Replenish electrolytes as necessary, K>4 and Mg>2. Continue Eliquis therapy b.i.d. [id number] Score 3, HAS-BLED 1. Monitor ECG changes closely and notify. Follow-up with primary bulb inspector within 1-2 weeks. In the setting of a controlled rate, there is no further cardiac workup indicated at this time. Thank you for allowing us to participate in this patient's care. Please call if you have any questions or concerns. This medical document was created using an electronic medical record system with voice recognition software and computerized dictation system. Although this document has been carefully reviewed, there might still be some phonetic and typographical errors. Occasional wrong-word or ``sound-alike substitutions may have occurred due to the inherent limitations of voice recognition software. These areas are purely typographical due to imperfections of the software programs and do not reflect any compromise in the patient's medical care. Please read the chart carefully and recognize, using context, where these substitutions have occurred. Plan discussed with: Patient, Other NYHA Physical activity limitations: NA Date of Service: Oct 29, 2024 Billing Provider: JERRI PETERS MD Cardiology Common Codes: [id number] INP/OBS CARE (High) ISRAEL NOLAND SHORER Oct 29, 2024 11:18
--- NOTE | 2024-10-29 11:22 | DVHSR ---
APPROVED REPORT EXAM: Two-dimensional and M-mode echocardiogram with Doppler and color Doppler. Blood Pressure: 154/91 mmHg INDICATION AFIB RISK FACTORS Height: 70, Weight: 295 DIMENSIONS LVDd4.5 (3.8-5.7cm)LA (2D)5.0 (1.9-4.0cm)Aortic Root4.2 (2.0-3.7cm) LVDs3.4 (2.5-4.0cm)LA (MM) (1.9-4.0cm)Aortic Cusp Exc1.7 (1.5-2.0cm) EF (%) 55.0 (55-70%)Rt. Atrium (1.9-4.0cm)Asc. Aorta cm IVSd1.4 (0.7-1.1cm)RV (D) (1.8-2.4cm) PWd1.4 (0.7-1.1cm) Mitral Valve MitralMitral Stenosis E wave0.96m/sMV Mean GR.2mmHg A wavem/sMV Peak GR.4mmHg E/A ratio0.02D MVAcm2 Aortic Valve Aortic ValveAortic Stenosis V11.07m/Surinder Mean GR.8mmHg V21.90m/Surinder Peak GR.14mmHg LVOT Diameter2.4 (1.8-2.4cm)Doppler AVA2.55cm2 Pulmonic Valve V20.79m/s LEFT VENTRICLE The left ventricle is of normal size. Left ventricular wall thickness is moderately increased. Ejec tion fraction is normal and is estimated at 55-60%. There is no gross wall motion abnormalities but endocardial definition is suboptimal. Diastolic function is indeterminate as the patient is in atria l fibrillation at the time of study. RIGHT VENTRICLE Not well visualized. Likely mildly dilated in size. Systolic function is likely preserved. ATRIA Moderately to severely dilated in size. Moderately to severely dilated in size. Not well visualized. MITRAL VALVE There is vcms-jx-dulyqlof mitral annular calcification. No significant regurgitation. PULMONIC VALVE Likely normal. TRICUSPID VALVE Not very well visualized. No significant tricuspid regurgitation seen. PA systolic pressure is not adequately estimated. AORTIC VALVE Not very well visualized. There does not appear to be significant stenosis or regurgitation. GREAT VESSELS Aortic root measures 4.2 cm at the level of the sinuses of Valsalva. Proximal ascending aorta is not visualized. PERICARDIAL EFFUSION No significant pericardial effusion. IVC is of normal size and collapses normally with inspiration. Other Information Technically limited study due to body habitus and patient position. Conclusion The study is technically limited. Normal left ventricular size and systolic function. Ejection fraction estimated at 55-60%. The right ventricle is likely mildly dilated with a preserved systolic function. Hvabevhn-ob-mjyneb biatrial enlargement. No hemodynamically significant valvular disease. PA systolic pressure isn't adequately estimated.
[2024-10-29] MEDS ORDERED: DEXTROSE (50%) 50ML SYRG IV PRN (11:30)
[2024-10-29] MEDS: MAGNESIUM SULFATE 1GM/100ML 100 ML IV ONE (11:39)
[2024-10-29] MEDS: METOPROLOL SUCCINATE XL 50 MG TAB PO ONE ×2 (11:40→12:36)
[2024-10-29] MEDS: POTASSIUM CHL 20 Meq TABLET PO ONE (11:40)
[2024-10-29] MEDS: FUROSEMIDE 20 MG TAB PO SCH (11:41)
[2024-10-29] MEDS: ACCU-CHEK COMFORT CURVE STRIP VI SCH (11:49)
[2024-10-29 12:00] LABS: Triglycerides 97 mg/dL (< 150)
[2024-10-29 12:01] LABS: LDL Cholesterol 76 mg/dL (< 100)
[2024-10-29 12:02] LABS: Cholesterol 126 mg/dL (< 200)
[2024-10-29 12:05] LABS: HDL Cholesterol 37 mg/dL (40-59)
[2024-10-29] MEDS: InsuLIN REG 1unit/0.01ml Soln (100units/ml) SC SCH (12:39)
[2024-10-29] MEDS: METOPROLOL TARTRATE 1MG/1ML-5ML VIAL IV ONE (18:00)
--- NOTE | 2024-10-29 18:02 | DVHPN2 ---
Subjective Denies any symptoms Reviewed: Care Plan, H&P, Medications Changes from previous H/P or p: No Changes General: Per HPI Objective Vitals Vital Signs Date Time Temp Pulse Resp B/P (MAP) Pulse Ox O2 Delivery O2 Flow Rate FiO2 10/29/24 16:00 112 21 138/78 (98) 92 10/28/24 19:30 Room Air* 0 21 10/28/24 15:38 100.9 Intake/Output Intake and Output 10/29/24 07:00 Intake Total 559.50 ml Output Total 350 ml Balance 209.50 ml Intake Oral 480 ml IV Total 79.50 ml Output Urine Total 350 ml General Appearance: Alert, Oriented X3, Cooperative, No acute distress HEENT: Atraumatic, PERRLA Lungs: Clear to auscultation, Normal air movement Cardiovascular: Normal S1, Normal S2 Abdomen: Normal bowel sounds, Soft Genitourinary: No Apparent Abnormalities Musculoskeletal: Normal sensory function, Normal motor function Neuro: Normal gait, Normal speech Psych/Mental Status: Mental status NL, Mood NL Medications Current Medications Medications Dose Ordered Sig/Arianna Route Start Time Stop Time Status Last Admin Dose Admin Tamsulosin HCl 0.4 mg QPM PO 10/29/24 18:00 Apixaban 5 mg BID PO 10/28/24 22:00 10/29/24 11:41 5 MG Furosemide 20 mg DAILY PO 10/29/24 10:00 10/29/24 11:41 20 MG Atorvastatin Calcium 20 mg HS PO 10/28/24 22:00 10/28/24 21:30 20 MG Temazepam 15 mg QHSP PRN PO 10/28/24 19:15 Ondansetron HCl 4 mg Q4HP PRN IV 10/28/24 19:15 Acetaminophen 650 mg Q6HP PRN PO 10/28/24 19:15 Nitroglycerin 0.4 mg Q5MINP PRN SL 10/28/24 19:15 10/29/24 07:01 0.4 MG Morphine Sulfate 2 mg Q30M PRN IV 10/28/24 19:15 10/29/24 00:15 2 MG Diagnostic Test (Pha) 1 strip ACHS 10/29/24 11:30 10/29/24 11:49 1 STRIP Insulin Human Regular ACHS SC 10/29/24 11:30 10/29/24 12:39 2 UNITS Dextrose 50 ml UD PRN IV 10/29/24 11:30 Metoprolol Succinate 50 mg DAILY PO 10/30/24 10:00 Laboratory Results Laboratory Tests 10/28/24 16:30 10/29/24 03:48 Chemistry Test 10/29/24 03:48 Calcium Level 9.7 mg/dL (8.7-10.4) Lipid panel Test 10/29/24 03:48 Cholesterol Level 126 mg/dL (< 200) HDL Cholesterol 37 mg/dL (40-59) L Triglycerides Level 97 mg/dL (< 150) HgA1c, TSH Test 10/29/24 03:48 Hemoglobin A1c 6.5 % A1C (<5.7) H Urinalysis Test 10/28/24 16:30 Urine Color Light-yellow (Yellow) Urine Clarity Clear (Clear) Urine pH 6.0 (5.0-9.0) Urine Specific [place] 1.010 (1.001-1.035) Urine Protein Negative (Negative) Urine Ketones Negative (Negative) Urine Blood Negative /uL (Negative) Urine Nitrite Negative (Negative) Urine Bilirubin Negative (Negative) Urine Urobilinogen Normal mg/dL (Negative) Urine Leukocyte Esterase Negative /uL (Negative) Urine RBC 3 /hpf (0 - 3) Urine WBC <1 /hpf (0 - 3) Urine Squamous Epithelial Cells None seen /hpf (<5) Urine Bacteria None seen /hpf (None Seen) Urine Glucose Normal mg/dL (Normal) Labs and/or images reviewed: Labs reviewed by me, Image(s) reviewed by me Assessment/Plan Assessment/Plan Impression: -AFib with RVR -chronic back pain -diabetes mellitus -obesity -dyslipidemia Plan: -cardiology consultation: Recommendations reviewed -restart cyclobenzaprine for back pain -regular insulin sliding scale -restart Eliquis -rate control with beta-sanam -re-evaluate for discharge in a.m. once heart rate is controlled Total time spent with patient discussing and formulating plan of care: 35 minutes. This medical document was created using an electronic medical record system with [employer] system. Although this document has been carefully reviewed, there may still be some phonetic and typographical errors. These areas are purely typographical due to imperfections of the software programs, and do not reflect any compromise in the patient's medical care. Plan discussed with: Patient, Other (RN) Date of Service: Oct 29, 2024 Billing Provider: WALT BANERJEE NP Common Visit Codes: [id number] INP/OBS CARE(HIGH) WALT BANERJEE NP Oct 29, 2024 18:02
[2024-10-29] MEDS ORDERED: APIX5TAB PO (18:03)
[2024-10-29] MEDS ORDERED: ASCO500T6 PO (18:04)
[2024-10-29] MEDS ORDERED: CHOL20002 PO (18:04)
[2024-10-29] MEDS ORDERED: FOLI-119 PO (18:09)
[2024-10-29] MEDS: TAMSULOSIN HYDROCHLORIDE 0.4 MG CAP PO SCH (18:18)
[2024-10-29 18:27] VITALS: PULSE 126; RESP 22; O2SAT 95
[2024-10-29 20:00] VITALS: PULSE 107; PULSE 115; RESP 18
[2024-10-29 21:00] VITALS: BP 133/83; PULSE 125; RESP 19; TEMP 98.7; O2SAT 93
[2024-10-29] MEDS ORDERED: hydrALAZINE HCL 20 MG/ML VL IV PRN (21:15)
[2024-10-29] MEDS ORDERED: METOPROLOL TARTRATE 50 MG TAB PO SCH (22:00)
[2024-10-29] MEDS: dilTIAZem 25 MG/5 ML VIAL IV ONE (22:03)
[2024-10-29] MEDS: DIGOXIN (250MCG/ML) 2 ML AMPULE IV ONE (22:03)
[2024-10-30 01:00] VITALS: BP 146/92; PULSE 107; RESP 17; TEMP 98.9; O2SAT 92
[2024-10-30 05:00] VITALS: BP 151/79; PULSE 103; RESP 17; TEMP 99; O2SAT 92
[2024-10-30 07:19] LABS: Chloride 104 mmol/L (98-107); Potassium 3.8 mmol/L (3.5-5.1); Sodium 139 mmol/L (136-145)
[2024-10-30 07:20] LABS: Anion Gap 8 (5-15); Carbon Dioxide 27 mmol/L (20-31)
[2024-10-30 07:21] LABS: Calcium 9.9 mg/dL (8.7-10.4)
[2024-10-30 07:25] LABS: BUN/Creatinine Ratio 16.2 (10.0-20.0); Blood Urea Nitrogen 12 mg/dL (9-23)
[2024-10-30 07:26] LABS: Glucose 121 mg/dL (74-106); Magnesium 2.1 mg/dL (1.6-2.6)
[2024-10-30 08:00] VITALS: PULSE 100; PULSE 86; RESP 18
[2024-10-30] MEDS: metFORMIN HYDROCHLORIDE 500 MG TAB PO SCH (08:23)
--- NOTE | 2024-10-30 08:52 | DVHPN2 ---
[facility] 10/30/24 0852: Consult Progress Note Date Seen: Oct 30, 2024 Subjective Review of Systems: CVS:Normal, RESPIRATORY:Normal, NEURO:Normal Objective vital signs Vital Sign Date Time Temp Pulse Resp B/P (MAP) Pulse Ox O2 Delivery O2 Flow Rate FiO2 10/30/24 08:19 151/79 10/30/24 05:00 99.0 103 17 92 99.0 10/29/24 20:00 Room Air* 0 21 Total Intake and Output 10/29/24 10/29/24 10/30/24 15:00 23:00 07:00 Intake Total 250 ml Output Total 400 ml 500 ml Balance -400 ml -250 ml medications Current Medications Medications Dose Ordered Sig/Arianna Route Start Time Stop Time Status Last Admin Dose Admin Tamsulosin HCl 0.4 mg QPM PO 10/29/24 18:00 10/29/24 18:18 0.4 MG Apixaban 5 mg BID PO 10/28/24 22:00 10/30/24 08:20 5 MG Furosemide 20 mg DAILY PO 10/29/24 10:00 10/30/24 08:19 20 MG Atorvastatin Calcium 20 mg HS PO 10/28/24 22:00 10/29/24 22:03 20 MG Temazepam 15 mg QHSP PRN PO 10/28/24 19:15 Ondansetron HCl 4 mg Q4HP PRN IV 10/28/24 19:15 Acetaminophen 650 mg Q6HP PRN PO 10/28/24 19:15 Nitroglycerin 0.4 mg Q5MINP PRN SL 10/28/24 19:15 10/29/24 07:01 0.4 MG Morphine Sulfate 2 mg Q30M PRN IV 10/28/24 19:15 10/29/24 00:15 2 MG Diagnostic Test (Pha) 1 strip ACHS 10/29/24 11:30 10/30/24 06:05 1 STRIP Insulin Human Regular ACHS SC 10/29/24 11:30 10/30/24 06:04 2 UNITS Dextrose 50 ml UD PRN IV 10/29/24 11:30 Metformin HCl 500 mg DAILY PO 10/30/24 10:00 10/30/24 08:23 500 MG Hydralazine HCl 10 mg Q6HR PRN IV 10/29/24 21:15 Diltiazem HCl 360 mg DAILY PO 10/30/24 10:00 Digoxin 0.125 mg DAILY PO 10/30/24 10:00 Magnesium Oxide 400 mg DAILY PO 10/30/24 10:00 Examination: LUNGS:Normal, CVS:Abnormal (Intermittent A-fib with RVR 130s-150s bpm), NEURO:Normal laboratory and microbiology Laboratory Tests 10/30/24 06:05 10/28/24 16:30 Test 10/30/24 06:05 Range/Units Serum Glucose 121 H 74-106 mg/dL Problem List/Assessment/Plan Problem List/Assessment/Plan Atrial fibrillation with rapid ventricular rate, likely persistent, Stage IIIb (on Eliquis) Noncardiac chest pain Hypertension Dyslipidemia Lhn-vexoxta-iltmkykee diabetes mellitus CECY on CPAP Morbid obesity Plan/Recommendation (Dr. Harris) The patient underwent a transthoracic echocardiogram revealing an EF of 55-60% with no gross wall motion abnormalities but endocardial definition is suboptimal. He also underwent a recent nonischemic stress test two months ago with primary neonatal icu coordinator. Continue rate control with Cardizem 360 mg daily and digoxin therapy. Avoid antiarrhythmic therapy as this is likely persistent A- Fib. Replenish electrolytes as necessary, K>4 and Mg>2. Continue DOAC with Eliquis b.i.d. [id number] Score 3, HAS-BLED 1. Monitor ECG changes closely and notify. Follow-up with primary neonatal icu coordinator within 1-2 weeks. Thank you for allowing us to participate in this patient's care. Please call if you have any questions or concerns. This medical document was created using an electronic medical record system with voice recognition software and computerized dictation system. Although this document has been carefully reviewed, there might still be some phonetic and typographical errors. Occasional wrong-word or ``sound-alike substitutions may have occurred due to the inherent limitations of voice recognition software. These areas are purely typographical due to imperfections of the software programs and do not reflect any compromise in the patient's medical care. Please read the chart carefully and recognize, using context, where these substitutions have occurred. Plan discussed with: Patient, Other Date of Service: Oct 30, 2024 Billing Provider: ISRAEL NOLAND Cardiology Common Codes: [id number] [facility](TUCKER Carr MD 10/30/24 1707: Consult Progress Note Problem List/Assessment/Plan Problem List/Assessment/Plan fu with primary cards rate controlled afib, doac, outpt ISRAEL Barton Oct 30, 2024 08:52 TUCKER HARRIS MD Oct 30, 2024 17:07
[2024-10-30 09:00] VITALS: BP 117/91; PULSE 100; RESP 18; TEMP 98.7; O2SAT 94
[2024-10-30] MEDS ORDERED: METOPROLOL SUCCINATE XL 50 MG TAB PO SCH ×2 (10:00)
[2024-10-30] MEDS: dilTIAZem HCL 180MG ER CAP PO SCH (10:00)
[2024-10-30] MEDS ORDERED: dilTIAZem 120MG ER CAP PO SCH (10:00)
[2024-10-30] MEDS ORDERED: PATIENTS OWN MEDICATION (Lovastatin 1 TAB) PO SCH (10:00)
[2024-10-30] MEDS: DIGOXIN 0.125 MG TAB PO SCH (10:54)
[2024-10-30] MEDS: MAGNESIUM OXIDE 400 MG TAB PO SCH (10:54)
[2024-10-30] MEDS: POTASSIUM CHL 20 Meq TABLET PO ONE (10:55)
--- NOTE | 2024-10-30 12:52 | ECG ---
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
[2024-10-30 13:00] VITALS: BP 120/69; PULSE 78; RESP 18; TEMP 97.7; O2SAT 95
[2024-10-30] MEDS: dilTIAZem 120MG ER CAP PO ONE (13:59)
--- NOTE | 2024-10-30 14:26 | ECG ---
[facility] Test Date: 2024-10-29 Test Time: 20:59:45 Pat Name: LINDSAY MAK Department: Respiratoy Room: 0240T A Gender: M Rn Ent: AJAY : [id number] Requested By: ISRAEL NOLAND Order Number: [id number] Reading MD: Dino Oseguera Measurements Intervals [place] Rate: 142 P: 0 [place]: 0 QRS: 0 QRSD: 85 T: 88 QT: 325 QTc: 500 Interpretive Statements Atrial fibrillation Borderline low voltage, extremity leads ST depression, probably rate related Borderline prolonged QT interval Electronically Signed On 11-02-2024 10:23:16 PST by Dino Oseguera Please click the below link to view image of tracing.
[2024-10-30] MEDS ORDERED: DILT-102 PO (14:29)
--- NOTE | 2024-10-30 14:36 | DVHDS2 ---
Discharge Summary Date of Admission Oct 28, 2024 at 19:10 Date of Discharge: Oct 30, 2024 Admitting Diagnosis Atrial fibrillation with rapid ventricular rate Labs/Diagnostic Data: Laboratory Results Test 10/30/24 11:11 10/30/24 06:05 10/29/24 21:52 10/29/24 03:48 POC Glucose 135 mg/dl (70-106) Sodium Level 139 mmol/L (136-145) Potassium Level 3.8 mmol/L (3.5-5.1) Chloride Level 104 mmol/L (98-107) Carbon Dioxide Level 27 mmol/L (20-31) Anion Gap 8 (5-15) Blood Urea Nitrogen 12 mg/dL (9-23) Creatinine 0.74 mg/dL (0.700-1.30) Glomerular Filtration Rate Calc 98 mL/min (>90) BUN/Creatinine Ratio 16.2 (10.0-20.0) Serum Glucose 121 mg/dL (74-106) Calcium Level 9.9 mg/dL (8.7-10.4) Magnesium Level 2.1 mg/dL (1.6-2.6) Total Triiodothyronine (TT3) 0.83 ng/mL (0.60-1.81) Hemoglobin A1c 6.5 % A1C (<5.7) Triglycerides Level 97 mg/dL (< 150) Cholesterol Level 126 mg/dL (< 200) LDL Cholesterol 76 mg/dL (< 100) HDL Cholesterol 37 mg/dL (40-59) Test 10/28/24 23:39 10/28/24 16:30 Troponin I High Sensitivity 5 ng/L (</=54) White Blood Count 10.1 10^3/uL (4.4-10.8) Red Blood Count 5.11 10^6/uL (4.5-5.90) Hemoglobin 14.7 g/dL (13.5-17.5) Hematocrit 43.8 % (41.0-53.0) Mean Corpuscular Volume 85.7 fL (80.0-100.0) Mean Corpuscular Hemoglobin 28.8 pg (28.0-32.0) Mean Corpuscular Hemoglobin Concent 33.6 g/dL (32.0-36.0) Red Cell Distribution Width 14.3 % (11.8-14.3) Platelet Count 283 10^3/uL (140-450) Mean Platelet Volume 7.5 fL (6.9-10.8) Neutrophils (%) (Auto) 59.7 % (37.0-80.0) Lymphocytes (%) (Auto) 22.3 % (10.0-50.0) Monocytes (%) (Auto) 17.1 % (0.0-12.0) Eosinophils (%) (Auto) 0.6 % (0.0-7.0) Basophils (%) (Auto) 0.3 % (0.0-2.0) Neutrophils # (Auto) 6.0 10 ^3/uL (1.6-8.6) Lymphocytes # (Auto) 2.2 10 ^3/uL (0.4-5.4) Monocytes # (Auto) 1.7 10 ^3/uL (0-1.3) Eosinophils # (Auto) 0.1 10 ^3/uL (0-0.8) Basophils # (Auto) 0 10 ^3/uL (0-0.2) Nucleated Red Blood Cells 0.1 % Urine Color Light-yellow (Yellow) Urine Clarity Clear (Clear) Urine pH 6.0 (5.0-9.0) Urine Specific [place] 1.010 (1.001-1.035) Urine Protein Negative (Negative) Urine Ketones Negative (Negative) Urine Blood Negative /uL (Negative) Urine Nitrite Negative (Negative) Urine Bilirubin Negative (Negative) Urine Urobilinogen Normal mg/dL (Negative) Urine Leukocyte Esterase Negative /uL (Negative) Urine RBC 3 /hpf (0 - 3) Urine WBC <1 /hpf (0 - 3) Urine Squamous Epithelial Cells None seen /hpf (<5) Urine Bacteria None seen /hpf (None Seen) Urine Glucose Normal mg/dL (Normal) B-Type Natriuretic Peptide 56.62 pg/mL (0-100) Thyroid Stimulating Hormone (TSH) 0.58 uIU/mL (0.55-4.78) Other Laboratory Tests 10/30/24 06:05 10/28/24 16:30 Brief Hx & Hospital Course: History of Present Illness 69-year-old male presents for evaluation of chest pain. Patient reports developing substernal pressure-like chest pain today. On arrival patient was noted to be in AFib with RVR with a heart rate ranging from 130s to 180s. Initially he did complain of dizziness. Currently he reports mild chest pressure and shortness for breath. Patient was started on Cardizem drip in the emergency department. Course of hospitalization: Patient had echocardiogram with no unremarkable results, normal ejection fraction. Patient was started on beta-sanam therapy with Toprol-XL in addition to IV Lopressor, with the patient being refractory to beta-sanam therapy. Patient was started on Cardizem XL, titrated to 360 mg p.o., with the patient's heart rate now in the 80s to 90s while resting. Patient was continued on home medications including anticoagulation with Eliquis. Findings were discussed with the patient regarding her cardiogram. Patient also reports that he recently had stress test two months ago without any abnormalities found at this time. Patient was agreeable to be discharged home now that his heart rate has improved. He will follow up with his carburetor expert, at earliest appointment available and be continued on all home medications as well as Cardizem XL 3-60 mg p.o. daily for rate control. Physical examination General: Alert and Oriented x3. No acute distress. Well-nourished. Obese Eyes: EOMI. Anicteric. HENT: Moist mucous membranes. Lungs: Clear to auscultation bilaterally. No accessory muscle use. Cardiovascular: No murmur. No JVD. AFib Abdomen: Soft, non-tender and non-distended. No palpable masses. Extremities: No edema. Non-tender. Skin: No rashes or lesions. Warm. Neurologic: No focal neurological deficits. CN II-XII grossly intact, but not individually tested. Psychiatric: Cooperative. Appropriate mood and affect. Total time spent with patient discussing and formulating plan of care: 35 minutes. This medical document was created using an electronic medical record system with [employer] dictation system. Although this document has been carefully reviewed, there may still be some phonetic and typographical errors. These areas are purely typographical due to imperfections of the software programs, and do not reflect any compromise in the patient's medical care. Consults/Reason for consult Cardiology: Atrial fibrillation Condition at Discharge: Fair Final Diagnosis/Problems List Atrial fibrillation with rapid ventricular rate Secondary Diagnosis: -chronic back pain -diabetes mellitus -obesity -dyslipidemia Discharge Disposition: Home Discharge Instruct/Medications Diet: Consistent carbohydrate Follow Up/Referral: Follow up with carburetor expert in 1-2 weeks Medications: Cardizem XL 360 mg p.o. daily Continue all previous home medications 36 Discharge Statement: "Patient was advised to return to the ER or call 911 if any headaches, dizziness, shortness of breath, chest pain, abdominal pain, bleeding, fevers, or worsening of medical condition. Patient was counseled about treatment plan, medications, possible side effects, patientverbalized understanding. All questions were answered to the best of my ability. This discharge took greater then 30 minutes in planning, reviewing documentation, counseling the patient, and discussing with other team members." ASSESSMENT ASSESSMENT Assessment Date of Service: Oct 30, 2024 Billing Provider: WALT BANERJEE NP Common Visit Codes: 28653-AKS/OBS DISCH DAY >30min WALT BANERJEE NP Oct 30, 2024 14:36
[2024-10-30 16:18] VITALS: BP 120/69; PULSE 100; RESP 18; TEMP 97.7; O2SAT 95
[2024-10-30] MEDS ORDERED: TAMSULOSIN HYDROCHLORIDE 0.4 MG CAP PO SCH (18:00)
== END 2024-10-30 17:42 | disposition home or self-care (01) | DRG 309 ==
LOC: EDBD 15:38 → ER 15:51 → DOU 19:10 → OVERFLOW 19:34 → TELE-EAST 10-29 17:44
PROVIDERS: ADMIT Nurse Practitioner; ATTEND Nurse Practitioner Acute Care
DX: I48.0 Paroxysmal atrial fibrillation (principal); Z68.41 Body mass index [BMI] 40.0-44.9, adult; I11.0 Hypertensive heart disease with heart failure; I50.9 Heart failure, unspecified; G47.33 Obstructive sleep apnea (adult) (pediatric); E66.01 Morbid (severe) obesity due to excess calories; G89.29 Other chronic pain; E78.5 Hyperlipidemia, unspecified; N40.0 Benign prostatic hyperplasia without lower urinary tract symptoms; E11.9 Type 2 diabetes mellitus without complications; Z79.84 Long term (current) use of oral hypoglycemic drugs; Z79.01 Long term (current) use of anticoagulants; Z79.899 Other long term (current) drug therapy
CPT/HCPCS: 36415; 71045; 80048; 80061; 81001; 82962; 83036; 83735; 83880; 84436; 84443; 84480; 84484; 85025; 93005; 93306; 96374; 96375; 99291; G0378; J1815

== ENCOUNTER 2025-05-20 09:14 | Emergency (ER) | payer OTHER ==
[~2025-05-20] VITALS: Ht 180.3 cm; Wt 117.5 kg
[~2025-05-20 09:14] MED LIST changes: +APIX5TAB PO; +ASCO500T6 PO; +CHOL20002 PO; +DILT-102 PO; +FOLI-119 PO; -LEVO500T91 PO
--- NOTE | 2025-05-20 09:50 | ED.PDOC ---
Musculoskeletal HPI Comments A 70-YEAR-OLD MALE PRESENTS WITH A CHIEF COMPLAINT OF LEFT KNEE PAIN X 2 WEEKS. PATIENT STATES THAT HE SPONTANEOUSLY DEVELOPED PAIN TO HIS LEFT KNEE. PATIENT IS ABLE TO AMBULATE, BUT IT IS PAINFUL TO DO SO. PATIENT HAS SWELLING TO HIS LEFT KNEE. HE HAD MRI STUDY OF LEFT KNEE DONE EARLY THIS WEEK, NO REPORTS AVAILABLE A T THIS TIME. NO DEFORMITIES OR INJURIES AT THIS TIME. PATIENT DENIES CHEST PAIN, VOMITING, DIARRHEA, NAUSEA, ABDOMEN PAIN, SOB, HEADACHE, CHILLS, FEVER, OR COVID SYMPTOMS. NO OTHER SYMPTOMS REPORTED AT THIS TIME OF CARE. Chief Complaint: Lower Extremity Time Seen by MD: 09:39 Primary Care Provider: UNKNOWN Reviewed Notes: Nurses Notes, Medications, Allergies Allergies: Coded Allergies: NO KNOWN ALLERGIES (Unverified , 04/17/18) Home Meds Active Scripts Hydrocodone-Acetaminophen (Hydrocodone Bitartrate/AC 10-325 mg) 1 Tab Tab, 1 TAB PO BID, #14 TAB Prov:TORY RICHARD 05/20/25 Diltiazem HCl (Diltiazem Hydrochloride E) 180 Mg Cap, 360 MG PO DAILY for 30 Days, #60 CAP 2 Refills Prov:WALT BANERJEE TEAM FACILITATOR 10/30/24 Reported Medications Folic Acid (Folic Acid) 1 Mg Tab, 1 TAB PO DAILY 10/29/24 Ascorbic Acid (Gnp Vitamin C W/Cindy Hips) 500 Mg Tab, 1 TAB PO DAILY 10/29/24 Cholecalciferol (VITAMIN D3) 2,000 Unit Tab, 1 CAP PO DAILY 10/29/24 Apixaban Base (ELIQUIS) 5 Mg Tab, 1 TAB PO BID 10/29/24 Lovastatin (Lovastatin) 20 Mg Tab, 1 TAB PO DAILY, #30 TAB 5 Refills 04/23/19 Hydrochlorothiazide (Hydrochlorothiazide) 12.5 Mg Cap, 12.5 MG PO DAILY for 30 Days, MG 04/23/19 Tamsulosin Hcl (Tamsulosin Hcl) 0.4 Mg Cap, 0.4 MG PO QPM for 30 Days, MG 04/23/19 Metformin Hydrochloride (Metformin Hcl) 500 Mg Tab, 500 MG PO DAILY for 30 Days, MG 04/23/19 Information Source: Patient Mode of Arrival: Ambulatory Location: Left Extremity Location: Knee Timing: Days Prehospital treatment: None Severity: Moderate Able to Move Extremity: Yes Bear Weight: Limited Pain: Moderate Hand Dominance: Right Mechanism: Spontaneous Circumstances: Spontaneous Onset of Symptoms: Spontaneous Symptoms: Swelling, Pain DVT Risk Factors: NONE Last Tetanus: Unknown Associated signs and symptoms: Knee pain Past Medical History PAST MEDICAL HISTORY: AFIB, DM, High Lipids Surgical History: Hernia Repair Family History Family History: Unobtainable Social History Smoker: Non-Smoker Alcohol: Occasionally Drugs: Denies Drug Use Lives In: Home Constitutional: denies: chills, diaphoresis, fatigue, fever, malaise, sweats, weakness, others EENTM: denies: blurred vision, double vision, ear bleeding, ear discharge, ear drainage, ear pain, ear ringing, eye pain, eye redness, hearing loss, mouth pain, mouth swelling, nasal discharge, nose bleeding, nose congestion, nose pain, photophobia, tearing, throat pain, throat swelling, voice changes, others Respiratory: denies: cough, hemoptysis, orthopnea, SOB at rest, shortness of breath, SOB with excertion, stridor, wheezing, others Gastrointestinal: denies: abdomen distended, abdominal pain, blood streaked bowels, constipated, diarrhea, dysphagia, difficulty swallowing, hematemesis, melena, nausea, poor appetite, poor fluid intake, rectal bleeding, rectal pain, vomiting, others Genitourinary: denies: burning, dysuria, flank pain, frequency, hematuria, incontinence, penile discharge, penile sore, pain, testicle pain, testicle swell ing, urgency, others Neurological: denies: dizziness, fainting, headache, left sided numbness, left sided weakness, numbness, paresthesia, pre-existing deficit, right sided numbness, right sided weakness, seizure, speech problems, tingling, tremors, weakness, others Musculoskeletal: reports: joint pain, joint swelling, muscle pain; denies: back pain, gout, muscle stiffness, neck pain, others Integumetry: denies: bruises, change in color, change in hair/nails, dryness, laceration, lesions, lumps, rash, wounds, others Allergic/Immunocompromised: denies: Difficulty Healing, Frequent Infections, Hives, Itching, others Hematologic/Lymphatic: denies: anemia, blood clots, easy bleeding, easy bruising, swollen glands, others Endocrine: denies: excessive hunger, excessive sweating, excessive thirst, excessive urination, flushing, intolerance to cold, intolerance to heat, unexplained weight gain, unexplained weight loss, others Psychiatric: denies: anxiety, bipolar disorder, depression, hopeless, panic disorder, schizophrenia, sleepless, suicidal, others All Other Systems: Reviewed and Negative Physical Exam General Appearance: No Apparent Distress, Obese HEENT: Normal ENT Inspection, PERRL/EOMI, Pharynx Normal, TMs Normal Neck: Full Range of Motion, Non-Tender, Normal, Normal Inspection Respiratory: Chest Non-Tender, Lungs Clear, No Accessory Muscle Use, No Respiratory Distress, Normal Breath Sounds Cardiovascular: No Edema, No JVD, No Murmur, No Gallop, Normal Peripheral Pulses, Regular Rate/Rhythm Breast Exam: Deferred Gastrointestinal: No Organomegaly, Non Tender, No Pulsatile Mass, Normal Bowel Sounds, Soft Genitalia: Deferred Pelvic: Deferred Rectal: Deferred Extremities: Decreased range of motion (SLIGHTLY. ), No calf tenderness, Normal capillary refill, No pedal edema, Swelling (TENDERNESS AND SWELLING WITH EFFUSION OF LEFT KNEE, NO BONY TENDERNESS, REDNESS AND DEFORMITY. ), Tender (AND EFFUSION ON LEFT KNEE, NO BONY TENDERNESS, REDNESS AND DVT SIGNS. ) Musculoskeletal : Apperance: Normal Neurologic: Alert, sap treasury consultant II-XII nml as Tested, No Motor Deficits, Normal Affect, Normal Mood, No Sensory Deficits Cerebellar Function: Normal Reflexes: Normal Skin: Dry, Normal Color, Warm Peripheral Pulses: 2+ carotid (R), 2+ carotid (L), 2+ dorsalis pedis (R), 2+ dorsalis pedis (L) Lymphatic: No Adenopathy Was a procedure done? Was a procedure done?: No Differential Diagnosis EXT Differential Diagnosis: Sprain, Gout, DJD, Other (INTERNAL DERANGEMENT OF LEFT KNEE. ) X-Ray, Labs, Meds, VS Vital Signs Date Time Temp Pulse Resp B/P (MAP) Pulse Ox O2 Delivery O2 Flow Rate FiO2 05/20/25 10:33 97.7 75 17 113/54 (73) 96 97.7 05/20/25 10:33 75 17 96 Room Air 05/20/25 09:15 98.2 79 18 137/68 95 98.2 Current Medications Medications (Trade) Dose Ordered Sig/Arianna Route Start Time Stop Time Status Last Admin Acetaminophen/ Hydrocodone Bitart ([place] 10/325MG Tab) 1 tab ONCE ONCE PO 05/20/25 09:45 05/20/25 09:46 DC 05/20/25 09:52 PATIENT: LAMIN MAKT: [id number]: [id number] : 1955 LOC: ER ROOM / BED: / AGE / SEX: 70 / M ADM STATUS: REG ER SERVICE ORDERING PHYSICIAN: TORY RICHARD PROCEDURE(s): LKNE3 - L KNEE 3V XRAY REASON: PAIN ANS SWELLING, NO INJURY ORDER NUMBER(s): [id number], ACCESSION NUMBER(s): [id number] CLINICAL INDICATION: PAIN ANS SWELLING, NO INJURY TECHNIQUE: XY L KNEE 3V XRAY Comparison: None FINDINGS/IMPRESSION: : There is no evidence of acute fracture or dislocation. Small joint effusion. ATED BY: VLAD LAL MD DICTATED DATE/TIME: 05/20/25 1030 SIGNED BY: VLAD LAL MD SIGNED DATE/TIME: 05/20/25 103 CC: X-Ray, Labs, Meds, VS Comment EXTERNAL MEDICAL RECORDS REVIEWED: [NONE] INDEPENDENT HISTORIANS: [NONE] SOCIAL DETERMINANTS OF HEALTH: [NONE] LABS ORDERED: NONE REVIEWED AND INTERPRETED RESULTS: NONE IMAGING ORDERED: L-KNEE X-RAY TREATMENTS ORDERED: [place] 10/325 PO PROCEDURES PERFORMED: NONE CRITICAL CARE TIME: NONE I HAVE DISCUSSED THE PATIENT WITH THE ATTENDING PHYSICIAN DR. WERNER AND HE AGREES WITH THE PATIENT'S PLAN OF CARE AND DISPOSITION. BASED ON HISTORY OF PRESENT ILLNESS, AND PHYSICAL EXAM, PATIENT WILL BE DISCHARGED HOME. DISCUSSED PLAN FOR DISCHARGE HOME WITH RX [NORCO 10/325]. MEDICATION WARNINGS GIVEN. SHARED DECISION MAKING: DISCUSSED WITH PATIENT THAT THEIR WORKUP WAS NORMAL. PATIENT INSTRUCTED TO FOLLOW UP WITH PRIMARY CARE PROVIDER IN 1-2 DAYS FOR RE-EVALUATION OF SYMPTOMS. PATIENT VERBALIZES UNDERSTANDING TO RETURN TO ED FOR NEW OR WORSENING SYMPTOMS OR IF FOLLOW UP WITH PCP CANNOT BE OBTAINED. PATIENT FEELS COMFORTABLE GOING HOME AT THIS TIME. ALL QUESTIONS ADDRESSED AT TIME OF DISCHARGE. Time of 1ST Reevaluation: 10:27 Reevaluation 1ST: Improved Patient Education/Counseling: Diagnosis, Treatment, Need For Follow Up Family Education/Counseling: Diagnosis, Treatment, No Family Present Medical Screening: No EMC Exist At This Time Departure 1 Departure Time of Disposition: 10:36 Impression: Primary Impression: Internal derangement of left knee Additional Impression: Degenerative joint disease of left knee Qualified Codes: M17.12 - Unilateral primary osteoarthritis, left knee Disposition: 01 HOME / SELF CARE / HOMELESS Condition: Stable Additional Instructions: FOLLOW UP WITH YOUR PCP IN 1-2 DAYS. RETURN TO THE ER IF YOUR SYMPTOMS WORSEN. e-Prescriptions Hydrocodone-Acetaminophen (Hydrocodone Bitartrate/AC 10-325 mg) 1 Tab Tab 1 TAB PO BID, #14 TAB Prov: TORY RICHARD 05/20/25 Discharged With: Self, Relative Critical Care Note Critical Care Time?: No Stability Stability form required: No Heart Score Heart Score: Heart Score Response (Comments) Value History N/A 0 EKG N/A 0 Age N/A 0 Risk Factors N/A 0 Troponin N/A 0 Total 0 I personally scribed for TORY RICHARD ([email or web address]) on 05/20/25 at 09:50. Electronically submitted by Alvaro Chiu ([email or web address]). TORY RICHARD May 20, 2025 09:50
[2025-05-20] MEDS: HYDROcodone-ACET 10/325MG TAB PO ONE (09:52)
[2025-05-20] MEDS ORDERED: HYDR-4798 PO (10:25)
--- NOTE | 2025-05-20 10:32 | DVH ---
CLINICAL INDICATION: PAIN ANS SWELLING, NO INJURY TECHNIQUE: XY L KNEE 3V XRAY Comparison: None FINDINGS/IMPRESSION: : There is no evidence of acute fracture or dislocation. Small joint effusion.
[2025-05-20 10:33] VITALS: BP 113/54; PULSE 75; RESP 17; TEMP 97.7; O2SAT 96
== END 2025-05-20 15:30 | disposition left against medical advice (07) ==
LOC: ER 09:14
DX: M23.92 Unspecified internal derangement of left knee (principal); M17.12 Unilateral primary osteoarthritis, left knee; E78.5 Hyperlipidemia, unspecified; E11.9 Type 2 diabetes mellitus without complications; I48.91 Unspecified atrial fibrillation; Z79.84 Long term (current) use of oral hypoglycemic drugs; Z79.899 Other long term (current) drug therapy; Z98.890 Other specified postprocedural states
CPT/HCPCS: 73562